=== PATIENT | male | born 1990 | race Caucasian/White ===

== ENCOUNTER 2017-07-22 15:53 | Emergency (ER) | payer SELFPAY ==
[2017-07-22 16:05] VITALS: BP 129/68; PULSE 92; RESP 14; TEMP 98.8; O2SAT 98
--- NOTE | 2017-07-22 16:52 | PD ---
HPI Chief Complaint: Complaint Time Seen by Provider: 16:45 Travel History International Travel<30 days: No Contact w/Intl Traveler<30days: No Traveled to known affect area: No History of Present Illness HPI 26-year-old male presents for evaluation of dysuria and urethral discharge. Symptoms started today. He reports a burning sensation when he urinates with no relieving factors. Denies any testicular or scrotal pain, flank pain, nausea or vomiting, fevers or chills. He is sexually active with only his . He has no other complaints. [facility] Social History Alcohol Use: Yes Tobacco Use: No Allergies-Medications (Allergen,Severity, Reaction): Coded Allergies: No Known Allergies (Unverified , 07/22/17) Reported Meds & Prescriptions Reported Meds & Active Scripts Active No Active Prescriptions or Reported Medications Review of Systems Except as stated in HPI: all other systems reviewed are Neg Physical Exam Narrative GENERAL: Well-nourished male in no acute distress SKIN: Warm and dry. HEAD: Atraumatic. Normocephalic. EYES: Pupils equal and round. No scleral icterus. No injection or drainage. ENT: No nasal bleeding or discharge. Mucous membranes pink and moist. NECK: Trachea midline. No JVD. CARDIOVASCULAR: Regular rate and rhythm. No murmur appreciated. RESPIRATORY: No accessory muscle use. Clear to auscultation. Breath sounds equal bilaterally. GASTROINTESTINAL: Abdomen soft, non-tender, nondistended. Hepatic and splenic margins not palpable. : Normal-appearing scrotum, bilateral descended testicles, there is yellow urethral discharge noted. Data Data Last Documented VS Vital Signs Date Time Temp Pulse Resp B/P (MAP) Pulse Ox O2 Delivery O2 Flow Rate FiO2 07/22/17 16:05 98.8 92 14 129/68 (88) 98 Orders Orders Urinalysis - C+S If Indicated (07/22/17 16:07) Gc And Chlamydia Pcr (07/22/17 16:07) Azithromycin (Zithromax) (07/22/17 17:00) Ceftriaxone Inj (Rocephin Inj) (07/22/17 17:00) Lidocaine 1% Inj (50 Ml) (Xylocaine 1% I (07/22/17 17:00) Ed Discharge Order (07/22/17 16:49) Labs Laboratory Tests Test 07/22/17 16:00 [facility] Medical Decision Making Medical Screen Exam Complete: Yes Emergency Medical Condition: Yes Medical Record Reviewed: Yes Differential Diagnosis Gonococcal urethritis, nongonococcal urethritis, cystitis, balanitis Narrative Course Examination is consistent with urethritis. The patient will be treated with azithromycin and Rocephin pending GC probe results. Diagnosis Primary Impression: Urethritis Referrals: [facility] Dept. Additional Instructions: Follow-up at the health department for routine STD testing. Have all partners tested and treated prior to sexual contact. Return for any emergent medical conditions. Med/Other Pt SpecificInfo: No Change to Meds Scripts No Active Prescriptions or Reported Meds Disposition: 01 DISCHARGE HOME Condition: Stable Brandon Arreguin Jul 22, 2017 16:52
[2017-07-22 16:55] LABS: AMORPHOUS SEDIMENT, URINE MOD; BACTERIA, URINE FEW /hpf; BILIRUBIN, URINE NEG (NEG); BLOOD, URINE NEG (NEG); GLUCOSE,URINE NEG (NEG); KETONE, URINE NEG (NEG); MUCUS URINE FEW /lpf (OCC); NITRITE,URINE NEG (NEG); PH, URINE 7.5 (5.0-8.5); SQUAMOUS EPITHELIAL CELL URINE <1 /hpf (0-5); URINE COLOR YELLOW (YELLW/STRAW); URINE LEUKOCYTE ESTERASE LARGE (NEG)
[2017-07-22] MEDS ORDERED: LIDOCAINE HCL 1% 50 ML VIAL XX ONE (17:00)
[2017-07-22] MEDS ORDERED: AZITHROMYCIN 250 MG TAB PO ONE (17:00)
[2017-07-22] MEDS ORDERED: cefTRIAXone 250 MG VIAL IM ONE (17:00)
== END 2017-07-22 17:34 | disposition home or self-care (01) ==
LOC: NEPK 15:53
DX: N34.2 Other urethritis (principal)
CPT/HCPCS: 81001; 87086; 87491; 87591; 96372; 99283; J0696